=== PATIENT | male | born 1940 | race Caucasian/White ===

== ENCOUNTER 2018-12-21 21:58 | Observation (INO) ==
[2018-12-22 03:08] LABS: Basophils % 0.4 % (0.0-0.8); Eosinophils # 0.3 10*3/uL (0.0-0.87); Eosinophils % 2.8 % (0.00-10.9); Hematocrit 43.2 VOL% (42.0-52.0); Hemoglobin 14.4 GM/DL (14.0-18.0); Immature Granulocytes % 0.4 %; Immature Granulocytes Absolute 0.04 #; Lymphocytes # 1.7 10*3/uL (1.4-4.0); Mean Corpuscular HGB Conc 33.3 GM/DL (32-36); Mean Corpuscular Volume 97.7 FL (87-102); Mean Platelet Volume 10.6 FL (9.6-12.0); Monocytes % 8.8 % (1.7-12.7); Neutrophils % 70.6 % (38.7-73.9); Platelet Count 211 T/CUMM (130-400); Red Blood Count 4.42 MC/CUMM (3.8-5.5); Red Cell Distribution Width 13.1 % (9.3-17.3); White Blood Count 9.7 T/CUMM (4-12)
[2018-12-22 03:18] LABS: Albumin 3.7 G/DL (3.4-5.0); Bilirubin,Total 0.6 MG/DL (0.2-1.0); Calcium 9.6 MG/DL (8.5-10.1); Osmolality,Calculated 276.4 MOS/KG (273-304); Total Protein 7.6 G/DL (6.4-8.3)
[2018-12-22] MEDS ORDERED: ACETAMINOPHEN 325 MG TABLET PO PRN (07:43)
[2018-12-22] MEDS ORDERED: ONDANSETRON 4 MG/2 ML VIAL IV PRN (07:43)
[2018-12-22] MEDS ORDERED: NITROGLYCERIN SL 0.4 MG TABLET SL PRN (07:46)
[2018-12-22] MEDS ORDERED: METOPROLOL TARTRATE 50 MG TABLET PO SCH (09:00)
[2018-12-22] MEDS ORDERED: APIXABAN 5 MG TABLET PO SCH (09:00)
[2018-12-22] MEDS ORDERED: GABAPENTIN 300 MG CAPSULE PO SCH (09:00)
[2018-12-22] MEDS ORDERED: LISINOPRIL 5 MG TABLET PO SCH (09:00)
[2018-12-22] MEDS ORDERED: POTASSIUM CHLORIDE 10 MEQ TABLET PO SCH (09:00)
[2018-12-22] MEDS ORDERED: RANOLAZINE 500 MG TABLET PO SCH (09:00)
[2018-12-22] MEDS ORDERED: ENOXAPARIN 40 MG/0.4 ML SYRINGE SUBCUT SCH (09:00)
[2018-12-22] MEDS ORDERED: PANTOPRAZOLE 40 MG TABLET PO SCH ×2 (09:00)
[2018-12-22 09:29] LABS: Risk Ratio 2.93; Thyroid Stimulating Hormone 1.76 uIU/ml (0.358-3.74); VLDL CHOLESTEROL 19.2 MG/DL
[2018-12-22] MEDS: HYOSCYAMINE 0.125 MG TABLET PO SCH ×3 (10:25→15:55)
[2018-12-22] MEDS ORDERED: PARoxetine 10 MG TABLET PO SCH (11:00)
[2018-12-22 11:27] LABS: Troponin I 0.019 NG/ML (0.00-0.045)
[2018-12-22 14:35] LABS: Troponin I 0.019 NG/ML (0.00-0.045)
[2018-12-22 15:28] VITALS: BP 99/59
[2018-12-22] MEDS ORDERED: FINASTERIDE 5 MG TABLET PO SCH (21:00)
[2018-12-22] MEDS ORDERED: MAGNESIUM OXIDE 400 MG TABLET PO SCH (21:00)
[2018-12-22] MEDS ORDERED: SIMVASTATIN 40 MG TABLET PO SCH (21:00)
[2018-12-22] MEDS ORDERED: ASCORBIC ACID 500 MG TABLET PO SCH (21:00)
[2018-12-22] MEDS ORDERED: TAMSULOSIN 0.4 MG CAPSULE PO SCH (21:00)
[2018-12-22] MEDS ORDERED: ASPIRIN EC 81 MG TABLET PO SCH (21:00)
[2018-12-22] MEDS ORDERED: MONTELUKAST 10 MG TABLET PO SCH (21:00)
== END 2018-12-22 16:57 | disposition home or self-care (01) ==
LOC: N.EDINP 21:58 → N.ED 21:58 → N.EDINP 12-22 09:26 → N.5E 12-22 09:49
PROVIDERS: ADMIT Family Medicine; ATTEND Family Medicine